=== PATIENT | female | born 1955 | race Caucasian/White ===

== ENCOUNTER 2021-10-01 18:16 | Emergency (ER) | payer OTHER, MEDICAID ==
[~2021-10-01] VITALS: Ht 182.9 cm; Wt 78.5 kg
[2021-10-01 18:20] VITALS: BP 142/61
[2021-10-01 19:11] LABS: Basophils # (auto) 0 10 ^3/uL (0-0.2); Basophils % (auto) 0.5 % (0.0-2.0); Eosinophils # (auto) 0.1 10 ^3/uL (0-0.8); Eosinophils % (auto) 1.2 % (0.0-7.0); Hematocrit 41.4 % (36.0-46.0); Lymphocytes # (auto) 2.2 10 ^3/uL (0.4-5.4); Lymphocytes % (auto) 31.3 % (10.0-50.0); Mean Corpuscular Hemoglobin 29.3 pg (28.0-32.0); Mean Corpuscular Hgb Conc. 33.8 g/dL (32.0-36.0); Mean Corpuscular Volume 86.6 fL (80.0-100.0); Monocytes # (auto) 0.4 10 ^3/uL (0-1.3); Monocytes % (auto) 6.1 % (0.0-12.0); Neutrophils # (auto) 4.3 10 ^3/uL (1.6-8.6); Neutrophils % (auto) 60.9 % (37.0-80.0); Red Blood Cells 4.78 10^6/uL (4.0-5.20); Red Cell Distribution Width 13.4 % (11.8-14.3); White Blood Cell 7.1 10^3/uL (4.4-10.8)
[2021-10-01] MEDS ORDERED: SODIUM CHLORIDE 0.9% 1,000 ML IV ONE ×2 (19:15→22:00)
[2021-10-01 19:29] LABS: Albumin 3.6 g/dL (3.4-5.0); BUN/Creatinine Ratio 16.7; Calcium 8.9 mg/dL (8.5-10.1); Potassium 3.9 mmol/L (3.5-5.1)
[2021-10-01 19:31] LABS: Bilirubin, Total 0.5 mg/dL (0.2-1.0); Total Protein 7.6 g/dL (6.4-8.2)
[2021-10-01] MEDS ORDERED: IOHEXOL 300 MG/ML 100ML BOTTLE IJ ONE (20:09)
[2021-10-01 21:07] LABS: Urine Bacteria NONE SEEN /hpf (None Seen); Urine Blood Negative /uL (Negative); Urine Hyaline Cast FEW /lpf (0 - 2); Urine Specific Gravity 1.023 (1.001-1.035); Urine WBC 67 /hpf (0 - 5)
[2021-10-01] MEDS ORDERED: CEPHALEXIN 250 MG CAP PO ONE (22:00)
[2021-10-01] MEDS ORDERED: ONDANSETRON HCL 4 MG/2 ML VIAL IV ONE (22:00)
[2021-10-01] MEDS ORDERED: KETOROLAC TROMETH 30 MG/ML 1ML VIAL IV ONE (22:00)
[2021-10-01] MEDS ORDERED: TAMSULOSIN HYDROCHLORIDE 0.4 MG CAP PO ONE (22:00)
[2021-10-01] MEDS ORDERED: TAM04C PO (22:27)
[2021-10-01] MEDS ORDERED: PERCOT PO (22:27)
== END 2021-10-02 02:06 | disposition home or self-care (01) ==
LOC: ER 18:16 → EDBD 18:16 → ER 10-02 02:06
DX: N20.0 Calculus of kidney (principal)
CPT/HCPCS: 36415; 74177; 80053; 81001; 83605; 85025; 93005; 96361; 96374; 96375; 99285; J1885; J2405; J7030; Q9967

== ENCOUNTER 2023-10-07 12:39 | Inpatient (IN) | payer OTHER, MEDICAID ==
[~2023-10-07] VITALS: Ht 167.6 cm; Wt 79.0 kg
[~2023-10-07 12:39] MED LIST: PERCOT PO; TAMS-35 PO
[2023-10-07 13:43] LABS: Urine Bacteria None Seen /hpf (None Seen)
[2023-10-07 13:57] LABS: Urine Blood TRACE /uL (Negative); Urine Clarity Clear (Clear); Urine Color Light-Yellow (Yellow); Urine Protein, UAD Negative (Negative); Urine Specific Gravity 1.034 (1.001-1.035); Urine Urobilinogen Normal (Negative); Urine WBC 8 /hpf (0 - 5)
[2023-10-07 14:11] LABS: Basophils # (auto) 0 10 ^3/uL (0-0.2); Basophils % (auto) 0.7 % (0.0-2.0); Eosinophils # (auto) 0.1 10 ^3/uL (0-0.8); Eosinophils % (auto) 2.5 % (0.0-7.0); Hemoglobin 14.4 g/dL (12.2-16.2); Lymphocytes # (auto) 1.7 10 ^3/uL (0.4-5.4); Lymphocytes % (auto) 38.4 % (10.0-50.0); Mean Corpuscular Hgb Conc. 34.4 g/dL (32.0-36.0); Mean Corpuscular Volume 87.3 fL (80.0-100.0); Monocytes # (auto) 0.4 10 ^3/uL (0-1.3); Monocytes % (auto) 9.7 % (0.0-12.0); Neutrophils # (auto) 2.2 10 ^3/uL (1.6-8.6); Neutrophils % (auto) 48.7 % (37.0-80.0); Nucleated Red Blood Cells % 0.1 %; Red Blood Cells 4.81 10^6/uL (4.0-5.20); Red Cell Distribution Width 12.9 % (11.8-14.3); White Blood Cell 4.4 10^3/uL (4.4-10.8)
[2023-10-07 14:12] LABS: Chloride 106 mmol/L (98-107); Potassium 3.7 mmol/L (3.5-5.1); Sodium 137 mmol/L (136-145)
[2023-10-07 14:13] LABS: Anion Gap 8 (5-15); Calcium 9.4 mg/dL (8.7-10.4); Carbon Dioxide 23 mmol/L (20-30)
[2023-10-07 14:18] LABS: BUN/Creatinine Ratio 12.2 (10.0-20.0); Blood Urea Nitrogen 11 mg/dL (9-23); Glucose 340 mg/dL (74-106)
[2023-10-07] MEDS: SODIUM CHLORIDE 0.9% 1,000 ML IV ONE (14:31)
[2023-10-07] MEDS: PIPERACILLIN-TAZOB 3.375GM 100 ML IV ONE (15:12)
[2023-10-07] MEDS: InsuLIN REG 1unit/0.01ml Soln (100units/ml) IV ONE (15:19)
[2023-10-07] MEDS: ONDANSETRON HCL 4 MG/2 ML VIAL IV ONE (16:44)
[2023-10-07] MEDS: MORPHINE SULFATE 4 MG/ML SYR/VIAL IV ONE (16:44)
[2023-10-07 18:15] VITALS: PULSE 80; RESP 20; O2SAT 96
[2023-10-07] MEDS ORDERED: MORPHINE SULFATE INJ 2 MG/ml SYRG IV PRN (18:30)
[2023-10-07] MEDS ORDERED: NITROGLYCERIN 0.4 MG SL TAB SL PRN (18:30)
[2023-10-07] MEDS: SODIUM CHLORIDE 0.9% 1,000 ML IV SCH (18:30)
[2023-10-07] MEDS ORDERED: DEXTROSE (50%) 50ML SYRG IV PRN (18:30)
[2023-10-07] MEDS: DICYCLOMINE HCL (10MG/ML) 2 ML AMPULE IM ONE (19:06)
[2023-10-07] MEDS: TAMSULOSIN HYDROCHLORIDE 0.4 MG CAP PO ONE (19:06)
[2023-10-07] MEDS: MORPHINE SULFATE INJ 2 MG/ml SYRG IV PRN (19:06)
[2023-10-07] MEDS: cefTRIAXone 1GM/50ML D5W 50 ML IV ONE (19:07)
[2023-10-07 19:23] VITALS: PULSE 67; RESP 16; O2SAT 96
[2023-10-07 21:42] VITALS: RESP 18
[2023-10-07 21:43] VITALS: BP 136/57; PULSE 72; RESP 17; TEMP 98.2; O2SAT 97
[2023-10-07] MEDS ORDERED: METF-372 PO (22:18)
[2023-10-07] MEDS ORDERED: IBUP-1455 PO (22:18)
[2023-10-07] MEDS ORDERED: CALCTAB28 PO (22:18)
[2023-10-07] MEDS ORDERED: SULF400T11 PO (22:18)
[2023-10-07] MEDS: ACCU-CHEK COMFORT CURVE STRIP VI SCH (22:19)
[2023-10-07] MEDS: InsuLIN REG 1unit/0.01ml Soln (100units/ml) SC SCH (22:21)
[2023-10-07] MEDS: DICYCLOMINE HCL 10 MG CAP PO SCH (22:23)
[2023-10-08] VITALS (7 sets, daily range): BP systolic 123–147; BP diastolic 40–86; PULSE 54–74; RESP 16–19; TEMP 97.5–98.4; O2SAT 94–100
[2023-10-08 07:09] LABS: Alanine Aminotransferase 16 U/L (7-40); Albumin 3.6 g/dL (3.2-4.8); Alkaline Phosphatase 83 U/L (46-116); Anion Gap 3 (5-15); Aspartate Aminotransferase < 8 U/L (13-40); BUN/Creatinine Ratio 14.9 (10.0-20.0); Bilirubin, Total 0.3 mg/dL (0.2-1.0); Blood Urea Nitrogen 11 mg/dL (9-23); Calcium 8.8 mg/dL (8.5-10.1); Carbon Dioxide 26 mmol/L (20-30); Chloride 110 mmol/L (98-107); Glucose 196 mg/dL (74-106); Potassium 3.6 mmol/L (3.5-5.1); Sodium 139 mmol/L (136-145); Total Protein 6.3 g/dL (5.7-8.2)
[2023-10-08 07:18] LABS: Basophils # (auto) 0 10 ^3/uL (0-0.2); Basophils % (auto) 0.7 % (0.0-2.0); Eosinophils # (auto) 0.2 10 ^3/uL (0-0.8); Eosinophils % (auto) 3.1 % (0.0-7.0); Hematocrit 35.1 % (36.0-46.0); Hemoglobin 12.1 g/dL (12.2-16.2); Lymphocytes # (auto) 2.3 10 ^3/uL (0.4-5.4); Lymphocytes % (auto) 45.9 % (10.0-50.0); Mean Corpuscular Hgb Conc. 34.5 g/dL (32.0-36.0); Monocytes # (auto) 0.5 10 ^3/uL (0-1.3); Monocytes % (auto) 10.2 % (0.0-12.0); Neutrophils % (auto) 40.1 % (37.0-80.0); Nucleated Red Blood Cells % 0.1 %; Red Blood Cells 4.04 10^6/uL (4.0-5.20); Red Cell Distribution Width 13.4 % (11.8-14.3)
[2023-10-08 08:35] LABS: Hepatitis B Surface Antigen Negative (Negative)
[2023-10-08] MEDS: cefTRIAXone 1GM/50ML D5W 50 ML IV SCH (08:47)
[2023-10-08 08:57] LABS: Hepatitis C Antibody Negative (Negative)
[2023-10-08] MEDS: TAMSULOSIN HYDROCHLORIDE 0.4 MG CAP PO SCH (17:21)
[2023-10-08 18:30] LABS: Prothrombin Time 10.6 sec (9.3-11.8)
[2023-10-09] VITALS (7 sets, daily range): BP systolic 122–154; BP diastolic 63–76; PULSE 57–77; RESP 16–20; TEMP 97.7–98.4; O2SAT 95–97
[2023-10-09] MEDS: ONDANSETRON HCL 4 MG/2 ML VIAL IV PRN (01:13)
[2023-10-09 06:27] LABS: Basophils # (auto) 0 10 ^3/uL (0-0.2); Basophils % (auto) 0.4 % (0.0-2.0); Eosinophils # (auto) 0.1 10 ^3/uL (0-0.8); Eosinophils % (auto) 2.6 % (0.0-7.0); Hematocrit 35.1 % (36.0-46.0); Hemoglobin 12.2 g/dL (12.2-16.2); Lymphocytes # (auto) 2.8 10 ^3/uL (0.4-5.4); Lymphocytes % (auto) 51.3 % (10.0-50.0); Mean Corpuscular Hgb Conc. 34.8 g/dL (32.0-36.0); Mean Corpuscular Volume 86.1 fL (80.0-100.0); Monocytes # (auto) 0.5 10 ^3/uL (0-1.3); Neutrophils % (auto) 36.7 % (37.0-80.0); Nucleated Red Blood Cells % 0.3 %; Red Blood Cells 4.08 10^6/uL (4.0-5.20); Red Cell Distribution Width 12.9 % (11.8-14.3); White Blood Cell 5.5 10^3/uL (4.4-10.8)
[2023-10-09 06:44] LABS: INR 1.03 (0.9-1.15); Partial Thromboplastin Time 25.6 SEC (24.5-34.5); Prothrombin Time 10.9 sec (9.3-11.8)
[2023-10-09 06:45] LABS: Alanine Aminotransferase 18 U/L (7-40); Alkaline Phosphatase 80 U/L (46-116); Anion Gap 5 (5-15); BUN/Creatinine Ratio 7.4 (10.0-20.0); Blood Urea Nitrogen 5 mg/dL (9-23); Calcium 8.8 mg/dL (8.5-10.1); Carbon Dioxide 25 mmol/L (20-30); Chloride 110 mmol/L (98-107); Glucose 159 mg/dL (74-106); Potassium 3.7 mmol/L (3.5-5.1); Sodium 140 mmol/L (136-145)
[2023-10-09 06:46] LABS: Albumin 3.5 g/dL (3.2-4.8); Aspartate Aminotransferase < 8 U/L (13-40); Bilirubin, Total 0.3 mg/dL (0.2-1.0)
[2023-10-10] VITALS (8 sets, daily range): BP systolic 136–156; BP diastolic 46–63; PULSE 53–82; RESP 16–21; TEMP 97.3–98.1; O2SAT 91–96
[2023-10-10] MEDS ORDERED: MIDAZOLAM HCL 2MG/2ML 2ml VIAL (1mg/ml) ONE (08:50)
[2023-10-10] MEDS ORDERED: fentaNYL CITRATE 100 MCG/2 ML VL ONE (08:50)
[2023-10-10] MEDS ORDERED: METOCLOPRAMIDE HCL 5MG/ml INJ 2ml VIAL ONE (08:51)
[2023-10-10] MEDS ORDERED: LIDOCAINE 2% (LOCAL ANESTH.) PF 5ml SDV ONE (08:51)
[2023-10-10] MEDS ORDERED: ROCURONIUM 10MG/ML 10ML VIAL IV ONE (08:52)
[2023-10-10] MEDS ORDERED: ONDANSETRON HCL 4 MG/2 ML VIAL ONE (08:52)
[2023-10-10] MEDS ORDERED: HYDROmorphone HCL 2 MG/ML VL/or syr ONE (09:44)
[2023-10-10] MEDS ORDERED: SUGAMMADEX 200mg/2ml Vial (100MG/ML) IV ONE (09:50)
[2023-10-10] MEDS: BUPIVACAINE HCL 0.25% P/F 10 ML VIAL ONE ×3 (09:57→11:30)
[2023-10-10] MEDS: LIDOCAINE W/ EPINEPHRINE 1% 20ML VIAL ONE ×2 (09:57→11:30)
[2023-10-10] MEDS ORDERED: HYDROmorphone HCL 2 MG/ML VL/or syr IV PRN (10:45)
[2023-10-10] MEDS: ceFAZolin 2 GM/D5W50ml 50 ML IV ONE (11:30)
[2023-10-10] MEDS: SUCCINYLCHOLINE CHLORIDE 20 MG/ML 10ML VIAL IV ONE (11:30)
[2023-10-10] MEDS: ONDANSETRON HCL 4 MG/2 ML VIAL IV ONE (11:31)
[2023-10-10] MEDS: ceFAZolin 1GM/50ML 100 ML IV ONE (11:31)
[2023-10-11 01:00] VITALS: BP_SYST 144; BP_SYST 156; BP_DIAS 46; BP_DIAS 51; PULSE 81; PULSE 82; RESP 20; RESP 21; TEMP 98.1; TEMP 98.4; O2SAT 94; O2SAT 96
[2023-10-11 05:00] VITALS: BP 148/61; PULSE 70; RESP 18; TEMP 98; O2SAT 96
[2023-10-11 08:00] VITALS: PULSE 82; RESP 20
[2023-10-11 08:20] LABS: Basophils # (auto) 0 10 ^3/uL (0-0.2); Basophils % (auto) 0.4 % (0.0-2.0); Eosinophils # (auto) 0.1 10 ^3/uL (0-0.8); Hematocrit 37.4 % (36.0-46.0); Hemoglobin 12.9 g/dL (12.2-16.2); Lymphocytes # (auto) 2.2 10 ^3/uL (0.4-5.4); Lymphocytes % (auto) 30.8 % (10.0-50.0); Mean Corpuscular Hemoglobin 30.1 pg (28.0-32.0); Mean Corpuscular Hgb Conc. 34.4 g/dL (32.0-36.0); Mean Corpuscular Volume 87.6 fL (80.0-100.0); Monocytes # (auto) 0.5 10 ^3/uL (0-1.3); Monocytes % (auto) 7.7 % (0.0-12.0); Neutrophils # (auto) 4.2 10 ^3/uL (1.6-8.6); Neutrophils % (auto) 60.1 % (37.0-80.0); Red Blood Cells 4.27 10^6/uL (4.0-5.20); Red Cell Distribution Width 12.9 % (11.8-14.3)
[2023-10-11 08:40] VITALS: BP 167/63; PULSE 66; RESP 16; TEMP 98.2; O2SAT 96
[2023-10-11 08:47] LABS: Alanine Aminotransferase 18 U/L (7-40); Albumin 3.5 g/dL (3.2-4.8); Alkaline Phosphatase 79 U/L (46-116); Anion Gap 3 (5-15); Aspartate Aminotransferase 12 U/L (13-40); BUN/Creatinine Ratio 7.5 (10.0-20.0); Bilirubin, Total 0.3 mg/dL (0.2-1.0); Blood Urea Nitrogen < 5 mg/dL (9-23); Carbon Dioxide 27 mmol/L (20-30); Chloride 109 mmol/L (98-107); Glucose 175 mg/dL (74-106); Potassium 3.9 mmol/L (3.5-5.1); Sodium 139 mmol/L (136-145); Total Protein 6.3 g/dL (5.7-8.2)
[2023-10-11] MEDS: DOCUSATE SOD 100 MG CAP PO PRN (10:30)
[2023-10-11] MEDS ORDERED: CEPH500C PO (12:04)
[2023-10-11] MEDS ORDERED: DOCU-94 PO (12:04)
[2023-10-11] MEDS ORDERED: HYDR-4902 PO (12:04)
[2023-10-11 13:00] VITALS: BP 179/77; PULSE 72; RESP 12; TEMP 98.2; O2SAT 92
[2023-10-11 13:17] VITALS: BP 152/76; PULSE 72; RESP 20; TEMP 98; O2SAT 98
== END 2023-10-11 16:42 | disposition home or self-care (01) | DRG 417 ==
LOC: ER 12:39 → OVERFLOW 18:22 → EAST 18:22
PROVIDERS: ADMIT Nurse Practitioner Family; ATTEND Internal Medicine
PROC: 0FT44ZZ Resection of Gallbladder, Percutaneous Endoscopic Approach (ICD-10-PCS; principal; 2023-10-10 09:14)
DX: K80.62 Calculus of gallbladder and bile duct with acute cholecystitis without obstruction (principal); A41.9 Sepsis, unspecified organism; N30.00 Acute cystitis without hematuria; E11.65 Type 2 diabetes mellitus with hyperglycemia; I10 Essential (primary) hypertension; M79.7 Fibromyalgia; K82.8 Other specified diseases of gallbladder; K66.0 Peritoneal adhesions (postprocedural) (postinfection); F41.9 Anxiety disorder, unspecified; N20.0 Calculus of kidney; K21.9 Gastro-esophageal reflux disease without esophagitis; Z79.899 Other long term (current) drug therapy; Z79.891 Long term (current) use of opiate analgesic; Z87.442 Personal history of urinary calculi; Z79.84 Long term (current) use of oral hypoglycemic drugs; Z82.49 Family history of ischemic heart disease and other diseases of the circulatory system; Z80.7 Family history of other malignant neoplasms of lymphoid, hematopoietic and related tissues
CPT/HCPCS: 36415; 71045; 74176; 76705; 80048; 80053; 81001; 82962; 83036; 85025; 85610; 85730; 86803; 86850; 86900; 86901; 87086; 87340; 93005; 93306; 96361; 96365; 96367; 96372; 96375; G0378; J0330; J1815; J2001; J2250; J2405; J2543; J3490

== ENCOUNTER 2024-01-18 15:11 | Inpatient (IN) | payer OTHER, MEDICAID ==
[~2024-01-18] VITALS: Ht 167.6 cm; Wt 88.0 kg
[~2024-01-18 15:11] MED LIST changes: +CALCTAB28 PO; +CEPH500C PO; +DOCU-94 PO; +HYDR-4902 PO; +IBUP-1455 PO; +METF-372 PO; -PERCOT PO; -TAMS-35 PO
[2024-01-18 16:54] LABS: Basophils # (auto) 0 10 ^3/uL (0-0.2); Basophils % (auto) 0.5 % (0.0-2.0); Eosinophils # (auto) 0 10 ^3/uL (0-0.8); Eosinophils % (auto) 0.4 % (0.0-7.0); Hematocrit 43.4 % (36.0-46.0); Hemoglobin 15.1 g/dL (12.2-16.2); Lymphocytes # (auto) 2.1 10 ^3/uL (0.4-5.4); Lymphocytes % (auto) 22.7 % (10.0-50.0); Mean Corpuscular Hemoglobin 30.4 pg (28.0-32.0); Mean Corpuscular Hgb Conc. 34.7 g/dL (32.0-36.0); Mean Corpuscular Volume 87.4 fL (80.0-100.0); Monocytes # (auto) 0.6 10 ^3/uL (0-1.3); Monocytes % (auto) 6.6 % (0.0-12.0); Neutrophils # (auto) 6.3 10 ^3/uL (1.6-8.6); Neutrophils % (auto) 69.8 % (37.0-80.0); Platelet Count (auto) 265 10^3/uL (140-450); Red Blood Cells 4.96 10^6/uL (4.0-5.20); Red Cell Distribution Width 13.5 % (11.8-14.3); White Blood Cell 9.1 10^3/uL (4.4-10.8)
[2024-01-18 17:05] LABS: Chloride 104 mmol/L (98-107); Potassium 3.7 mmol/L (3.5-5.1); Sodium 136 mmol/L (136-145)
[2024-01-18 17:06] LABS: Anion Gap 6 (5-15); Calcium 9.6 mg/dL (8.7-10.4); Carbon Dioxide 26 mmol/L (20-30)
[2024-01-18] MEDS: SODIUM CHLORIDE 0.9% 1,000 ML IVB ONE (17:10)
[2024-01-18 17:11] LABS: BUN/Creatinine Ratio 13.6 (10.0-20.0); Blood Urea Nitrogen 12 mg/dL (9-23); Glucose 309 mg/dL (74-106)
[2024-01-18] MEDS: ONDANSETRON HCL 4 MG/2 ML VIAL IV ONE (17:13)
[2024-01-18] MEDS: MORPHINE SULFATE 4 MG/ML SYR/VIAL IV ONE (17:14)
[2024-01-18] MEDS ORDERED: DEXTROSE (50%) 50ML SYRG IV PRN (22:00)
[2024-01-18] MEDS ORDERED: TEMAZEPAM 15 MG CAP PO PRN (22:00)
[2024-01-18] MEDS ORDERED: ALBUTEROL SULF 2.5 MG/0.5ML(0.5%) NEB SOLN NEB PRN (22:00)
[2024-01-18] MEDS ORDERED: ONDANSETRON HCL 4 MG/2 ML VIAL IV PRN (22:00)
[2024-01-18] MEDS ORDERED: ACETAMINOPHEN 325 MG TAB PO PRN (22:00)
[2024-01-18] MEDS: ACCU-CHEK COMFORT CURVE STRIP VI SCH (23:51)
[2024-01-18] MEDS: InsuLIN REG 1unit/0.01ml Soln (100units/ml) SC SCH (23:57)
[2024-01-19] VITALS: BP 141/53; PULSE 80; RESP 16; TEMP 97.8; O2SAT 97
[2024-01-19] MEDS: GABAPENTIN 300 MG CAP PO SCH (00:28)
[2024-01-19 06:35] LABS: Urine Bacteria FEW /hpf (None Seen); Urine Blood Negative /uL (Negative); Urine Clarity Clear (Clear); Urine Color Light-Yellow (Yellow); Urine Mucus FEW (None Seen); Urine Protein, UAD TRACE (Negative); Urine Specific Gravity 1.025 (1.001-1.035); Urine Urobilinogen Normal (Negative); Urine WBC 49 /hpf (0 - 5); Urine pH 5.5 (5.0-9.0)
[2024-01-19] MEDS: HYDROcodone-ACET 5/325MG TAB PO PRN (06:41)
[2024-01-19 07:09] LABS: Basophils # (auto) 0 10 ^3/uL (0-0.2); Basophils % (auto) 0.5 % (0.0-2.0); Eosinophils # (auto) 0.1 10 ^3/uL (0-0.8); Eosinophils % (auto) 1.2 % (0.0-7.0); Hematocrit 40.4 % (36.0-46.0); Lymphocytes # (auto) 2.5 10 ^3/uL (0.4-5.4); Lymphocytes % (auto) 36.6 % (10.0-50.0); Mean Corpuscular Hemoglobin 30.1 pg (28.0-32.0); Mean Corpuscular Hgb Conc. 34.6 g/dL (32.0-36.0); Mean Corpuscular Volume 87.1 fL (80.0-100.0); Monocytes # (auto) 0.5 10 ^3/uL (0-1.3); Monocytes % (auto) 6.8 % (0.0-12.0); Neutrophils # (auto) 3.7 10 ^3/uL (1.6-8.6); Neutrophils % (auto) 54.9 % (37.0-80.0); Nucleated Red Blood Cells % 0.3 %; Platelet Count (auto) 256 10^3/uL (140-450); Red Blood Cells 4.64 10^6/uL (4.0-5.20); Red Cell Distribution Width 13.7 % (11.8-14.3); White Blood Cell 6.8 10^3/uL (4.4-10.8)
[2024-01-19 07:33] LABS: Anion Gap 7 (5-15); Calcium 9.5 mg/dL (8.7-10.4); Carbon Dioxide 28 mmol/L (20-30); Chloride 107 mmol/L (98-107); Potassium 3.5 mmol/L (3.5-5.1); Sodium 142 mmol/L (136-145)
[2024-01-19 07:39] LABS: BUN/Creatinine Ratio 14.8 (10.0-20.0); Blood Urea Nitrogen 13 mg/dL (9-23); Glucose 201 mg/dL (74-106)
[2024-01-19] MEDS: cefTRIAXone 1GM/50ML D5W 50 ML IV SCH (08:14)
[2024-01-19 08:51] VITALS: O2SAT 97
[2024-01-19 17:00] VITALS: BP 133/63; PULSE 79; RESP 17; TEMP 98.2; O2SAT 94
[2024-01-19] MEDS: SODIUM CHLORIDE 0.9% 1,000 ML IV SCH (18:12)
[2024-01-19] MEDS: INSULIN LANTUS (GLARGINE) 1 /0.01ml (100units/ml) SC ONE (18:25)
[2024-01-19] MEDS: MANNITOL FTV 25% 12.5 GM/50 ML 50 ML IV ONE (18:43)
[2024-01-19] MEDS: MORPHINE SULFATE INJ 2 MG/ml SYRG IV PRN (18:49)
[2024-01-19 18:57] VITALS: O2SAT 95
[2024-01-19 20:00] VITALS: PULSE 79; RESP 18; O2SAT 94
[2024-01-19 21:00] VITALS: BP 123/72; PULSE 85; RESP 17; TEMP 98.4; O2SAT 96
[2024-01-20] VITALS (11 sets, daily range): BP systolic 107–161; BP diastolic 48–89; PULSE 56–84; RESP 18–22; TEMP 97.7–98.3; O2SAT 96–99
[2024-01-20] MEDS: INSULIN LANTUS (GLARGINE) 1 /0.01ml (100units/ml) SC SCH (06:01)
[2024-01-20 08:25] LABS: Basophils # (auto) 0 10 ^3/uL (0-0.2); Basophils % (auto) 0.3 % (0.0-2.0); Eosinophils # (auto) 0.1 10 ^3/uL (0-0.8); Hematocrit 38.5 % (36.0-46.0); Hemoglobin 13.5 g/dL (12.2-16.2); Lymphocytes # (auto) 2.9 10 ^3/uL (0.4-5.4); Lymphocytes % (auto) 44.2 % (10.0-50.0); Mean Corpuscular Hemoglobin 30.4 pg (28.0-32.0); Mean Corpuscular Hgb Conc. 35.2 g/dL (32.0-36.0); Mean Corpuscular Volume 86.4 fL (80.0-100.0); Monocytes # (auto) 0.6 10 ^3/uL (0-1.3); Monocytes % (auto) 8.5 % (0.0-12.0); Neutrophils # (auto) 2.9 10 ^3/uL (1.6-8.6); Nucleated Red Blood Cells % 0.1 %; Platelet Count (auto) 241 10^3/uL (140-450); Red Blood Cells 4.45 10^6/uL (4.0-5.20); Red Cell Distribution Width 13.2 % (11.8-14.3); White Blood Cell 6.5 10^3/uL (4.4-10.8)
[2024-01-20 08:39] LABS: Anion Gap 7 (5-15); Carbon Dioxide 25 mmol/L (20-30); Chloride 108 mmol/L (98-107); Potassium 3.5 mmol/L (3.5-5.1); Sodium 140 mmol/L (136-145)
[2024-01-20 08:41] LABS: Calcium 9.2 mg/dL (8.7-10.4); INR 1.02 (0.9-1.15); Partial Thromboplastin Time 27.5 SEC (24.5-34.5); Prothrombin Time 10.8 sec (9.3-11.8)
[2024-01-20 08:46] LABS: Blood Urea Nitrogen 11 mg/dL (9-23); Glucose 163 mg/dL (74-106)
[2024-01-20 08:50] LABS: BUN/Creatinine Ratio 14.9 (10.0-20.0)
[2024-01-20] MEDS ORDERED: DexAMETHasone SOD PHOS 10MG/1ML VIAL INJ ONE (14:06)
[2024-01-20] MEDS ORDERED: LIDOCAINE 2% (LOCAL ANESTH.) PF 5ml SDV ONE (14:06)
[2024-01-20] MEDS ORDERED: ONDANSETRON HCL 4 MG/2 ML VIAL ONE (14:06)
[2024-01-20] MEDS ORDERED: KETOROLAC TROMETH 30 MG/ML 1ML VIAL ONE (14:06)
[2024-01-20] MEDS ORDERED: GLYCOPYRROLATE 0.2 MG/ML 1ML VIAL ONE (14:07)
[2024-01-20] MEDS ORDERED: PROPOFOL 10 MG/ML 20 ML IV ONE (14:07)
[2024-01-20] MEDS ORDERED: IOHEXOL 300 MG/ML 100ML BOTTLE IJ ONE (14:09)
[2024-01-20] MEDS ORDERED: KETAMINE 50mg/ML 1ml syringe ONE (14:10)
[2024-01-20] MEDS ORDERED: CIPROFLOXACIN 400MG/200ML 200 ML IV ONE (14:25)
[2024-01-20] MEDS ORDERED: ePHEDrine SULFATE 50 MG/ML AMP ONE (15:03)
[2024-01-20] MEDS ORDERED: ESMOLOL HCL 10 ML IV ONE (15:13)
[2024-01-20] MEDS ORDERED: FLUMAZENIL 0.1 MG/ML INJ 10ML MDV IV PRN (15:45)
[2024-01-20] MEDS ORDERED: HYDROmorphone HCL 2 MG/ML VL/or syr IV PRN (15:45)
[2024-01-20] MEDS ORDERED: NALOXONE HCL 0.4 MG/ML VIAL IV PRN (15:45)
[2024-01-20] MEDS ORDERED: hydrALAZINE HCL 20 MG/ML VL IV PRN (15:45)
[2024-01-20] MEDS ORDERED: ePHEDrine SULFATE 50 MG/ML AMP IV PRN (15:45)
[2024-01-20] MEDS ORDERED: ONDANSETRON HCL 4 MG/2 ML VIAL IV PRN (15:45)
[2024-01-20] MEDS ORDERED: fentaNYL CITRATE 100 MCG/2 ML VL IV PRN (15:45)
[2024-01-20] MEDS ORDERED: DEXTROSE (50%) 50ML SYRG IV PRN (22:45)
[2024-01-21] MEDS: InsuLIN REG 1unit/0.01ml Soln (100units/ml) SC SCH
[2024-01-21] MEDS: ACCU-CHEK COMFORT CURVE STRIP VI SCH
[2024-01-21 01:00] VITALS: BP 131/54; PULSE 89; RESP 18; TEMP 98; O2SAT 93
[2024-01-21 05:00] VITALS: BP 113/50; PULSE 77; RESP 20; TEMP 97.9; O2SAT 97
[2024-01-21 07:03] LABS: Basophils # (auto) 0 10 ^3/uL (0-0.2); Basophils % (auto) 0.2 % (0.0-2.0); Eosinophils # (auto) 0 10 ^3/uL (0-0.8); Hematocrit 38.1 % (36.0-46.0); Hemoglobin 13.6 g/dL (12.2-16.2); Lymphocytes # (auto) 1.3 10 ^3/uL (0.4-5.4); Mean Corpuscular Hemoglobin 30.6 pg (28.0-32.0); Mean Corpuscular Hgb Conc. 35.6 g/dL (32.0-36.0); Mean Corpuscular Volume 86.1 fL (80.0-100.0); Monocytes # (auto) 0.5 10 ^3/uL (0-1.3); Neutrophils # (auto) 6.4 10 ^3/uL (1.6-8.6); Neutrophils % (auto) 77.8 % (37.0-80.0); Platelet Count (auto) 256 10^3/uL (140-450); Red Blood Cells 4.43 10^6/uL (4.0-5.20); Red Cell Distribution Width 13.3 % (11.8-14.3); White Blood Cell 8.2 10^3/uL (4.4-10.8)
[2024-01-21 07:10] LABS: Anion Gap 7 (5-15); Carbon Dioxide 24 mmol/L (20-30); Chloride 106 mmol/L (98-107); Potassium 4.3 mmol/L (3.5-5.1); Sodium 137 mmol/L (136-145)
[2024-01-21 07:11] LABS: Calcium 9.5 mg/dL (8.7-10.4)
[2024-01-21 07:15] LABS: Glucose 246 mg/dL (74-106)
[2024-01-21 07:16] LABS: BUN/Creatinine Ratio 16.7 (10.0-20.0); Blood Urea Nitrogen 16 mg/dL (9-23)
[2024-01-21 08:00] VITALS: PULSE 67; RESP 17; O2SAT 98
[2024-01-21 08:59] VITALS: BP 90/59; PULSE 67; RESP 17; TEMP 98; O2SAT 98
[2024-01-21] MEDS ORDERED: INSUINJ37 SC (10:55)
[2024-01-21] MEDS ORDERED: GABA-1250 PO (10:55)
[2024-01-21] MEDS ORDERED: NAPR-746 PO (10:56)
[2024-01-21 12:59] VITALS: BP 126/63; PULSE 69; RESP 18; TEMP 98; O2SAT 96
[2024-01-21 13:13] VITALS: BP 126/63; PULSE 69; RESP 18; TEMP 98; O2SAT 96
[2024-01-22] MEDS ORDERED: NAP500T PO (13:20)
[2024-01-23] MEDS ORDERED: CEPH250C PO (12:43)
== END 2024-01-21 14:59 | disposition home or self-care (01) | DRG 690 ==
LOC: ER 15:11 → OVERFLOW 21:59 → CENTRAL 01-19 17:43
PROVIDERS: ADMIT Internal Medicine; ATTEND Internal Medicine
PROC: BT1D1ZZ Fluoroscopy of Right Kidney, Ureter and Bladder using Low Osmolar Contrast (ICD-10-PCS; 2024-01-20)
PROC: 0TC68ZZ Extirpation of Matter from Right Ureter, Via Natural or Artificial Opening Endoscopic (ICD-10-PCS; principal; 2024-01-20 14:42)
DX: N13.6 Pyonephrosis (principal); E11.65 Type 2 diabetes mellitus with hyperglycemia; E66.3 Overweight; Z90.49 Acquired absence of other specified parts of digestive tract; Z68.31 Body mass index [BMI] 31.0-31.9, adult; Z80.7 Family history of other malignant neoplasms of lymphoid, hematopoietic and related tissues; Z82.49 Family history of ischemic heart disease and other diseases of the circulatory system; Z79.4 Long term (current) use of insulin
CPT/HCPCS: 36415; 71045; 74018; 74176; 76000; 76775; 80048; 81001; 82360; 82962; 85025; 85610; 85730; G0378; J1100; J1815; J1885; J2001; J2405; J2704